=== PATIENT | male | born 1985 | race American Indian/Alaskan Native ===

== ENCOUNTER 2024-08-13 08:09 | Emergency (ER) | payer MEDICAID ==
[2024-08-13] MEDS: fentaNYL 100 MCG/2 ML SDV IM ONE (08:43)
[2024-08-13] MEDS: HYDROmorphone 1 MG/ML Syringe IM ONE (10:25)
[2024-08-13] MEDS ORDERED: metroNIDAZOLE/Normal Saline 500 MG in Premix Bag 1 BAG IV ONE (10:43)
[2024-08-13] MEDS: Clindamycin in 0.9 % Sod Chlor 600 MG in Premix Bag 1 BAG IV ONE (11:03)
[2024-08-13] MEDS: HYDROmorphone 0.5 MG/0.5 ML Syringe IVPUSH ONE (11:15)
[2024-08-13] MEDS: Sodium Chloride 0.9% 10 ML Syringe FLUSH PRN (11:20)
[2024-08-13] MEDS: metroNIDAZOLE 250 MG Tab PO ONE (11:43)
== END 2024-08-13 12:56 ==
LOC: JP.ED 08:09
DX: S92.312B Displaced fracture of first metatarsal bone, left foot, initial encounter for open fracture (principal); Z88.0 Allergy status to penicillin; Z79.899 Other long term (current) drug therapy; Z90.49 Acquired absence of other specified parts of digestive tract; W22.8XXA Striking against or struck by other objects, initial encounter; Y92.019 Unspecified place in single-family (private) house as the place of occurrence of the external cause
CPT/HCPCS: 73630; 96372; 96374; 96375; 99284; A9270; J1171; J3010; J3490